=== PATIENT | male | born 1955 | race African-American/Black ===

== ENCOUNTER 2019-01-05 13:57 | Emergency (ER) | payer OTHER ==
[~2019-01-05] VITALS: Ht 180.3 cm; Wt 100.0 kg
[2019-01-05 14:37] VITALS: BP 171/96
[2019-01-05] MEDS ORDERED: LIDOCAINE HCL/PF 1% 10 MG/ML 5ML VIAL IJ ONE (15:45)
[2019-01-05] MEDS ORDERED: BACITRACIN ZINC OINT UDPKT TOP ONE (17:45)
[2019-01-05] MEDS ORDERED: BACITRACIN 15GM TUBE TOP NR (17:45)
== END 2019-01-05 17:56 | disposition home or self-care (01) ==
LOC: ER 13:57 → EDBD 13:57 → ER 17:56
DX: S61.011A Laceration without foreign body of right thumb without damage to nail, initial encounter (principal); F17.200 Nicotine dependence, unspecified, uncomplicated; I10 Essential (primary) hypertension; W26.8XXA Contact with other sharp object(s), not elsewhere classified, initial encounter; Y93.89 Activity, other specified; Y92.89 Other specified places as the place of occurrence of the external cause; Y99.8 Other external cause status
CPT/HCPCS: 12001; 99283; J3490